=== PATIENT | female | born 1995 | race Two or more races ===

== ENCOUNTER 2019-07-13 14:38 | Emergency (ER) | payer OTHER ==
[~2019-07-13] VITALS: Ht 177.8 cm; Wt 117.9 kg
[2019-07-13 15:08] VITALS: BP 109/71
== END 2019-07-13 16:56 | disposition home or self-care (01) ==
LOC: ER 14:43
DX: S50.01XA Contusion of right elbow, initial encounter (principal); S40.012A Contusion of left shoulder, initial encounter; M54.2 Cervicalgia; M54.6 Pain in thoracic spine; V49.9XXA Car occupant (driver) (passenger) injured in unspecified traffic accident, initial encounter; Y93.89 Activity, other specified; Y92.488 Other paved roadways as the place of occurrence of the external cause; Y99.8 Other external cause status
CPT/HCPCS: 72125; 81025